=== PATIENT | female | born 1995 | race Caucasian/White ===

== ENCOUNTER 2020-12-20 07:49 | Outpatient (REF) | payer MEDICAID, SELFPAY ==
--- NOTE | ~2020-12-20 | US_ITS ---
EXAMINATION: US DIAGNOSTIC ULTRASOUND BREAST, RIGHT US DIAGNOSTIC ULTRASOUND BREAST, LEFT CLINICAL INFORMATION: 25-year-old with areas of palpable fullness noted at routine clinical exam. No discharge or pain. No family history breast cancer. COMPARISON: Targeted ultrasound left breast 10/27/2017, 01/09/2014, 10/10/2013. TECHNIQUE: Ultrasound is performed using grayscale imaging and color Doppler without and with harmonics. Exam is targeted to the areas of clinical concern 10:00 through 12:00 bilateral breasts. FINDINGS: Right: There is no focal suspicious finding. There is no cystic or solid mass, architectural abnormality, duct ectasia, or edema in the soft tissue planes. Left: There is no focal suspicious finding. There is no cystic or solid mass, architectural abnormality, duct ectasia, or edema in the soft tissue planes. Results are discussed with the patient at time of visit. US/US breast RT limited IMPRESSION: Normal study. ASSESSMENT: BI-RADS 1: Negative RECOMMENDATION: 1. Patient should be managed based on the clinical impression. If clinically indicated, further evaluation may be considered with surgical consult. Decision to proceed with biopsy should be based on clinical grounds and degree of clinical concern. 2. Otherwise, routine annual screening mammography, beginning age 40, or earlier as clinical risk factors warrant. This patient's information was entered into a reminder system with a target due date for their next mammogram.
--- NOTE | ~2020-12-20 | US_ITS ---
EXAMINATION: US DIAGNOSTIC ULTRASOUND BREAST, RIGHT US DIAGNOSTIC ULTRASOUND BREAST, LEFT CLINICAL INFORMATION: 25-year-old with areas of palpable fullness noted at routine clinical exam. No discharge or pain. No family history breast cancer. COMPARISON: Targeted ultrasound left breast 10/27/2017, 01/09/2014, 10/10/2013. TECHNIQUE: Ultrasound is performed using grayscale imaging and color Doppler without and with harmonics. Exam is targeted to the areas of clinical concern 10:00 through 12:00 bilateral breasts. FINDINGS: Right: There is no focal suspicious finding. There is no cystic or solid mass, architectural abnormality, duct ectasia, or edema in the soft tissue planes. Left: There is no focal suspicious finding. There is no cystic or solid mass, architectural abnormality, duct ectasia, or edema in the soft tissue planes. Results are discussed with the patient at time of visit. US/US breast LT limited IMPRESSION: Normal study. ASSESSMENT: BI-RADS 1: Negative RECOMMENDATION: 1. Patient should be managed based on the clinical impression. If clinically indicated, further evaluation may be considered with surgical consult. Decision to proceed with biopsy should be based on clinical grounds and degree of clinical concern. 2. Otherwise, routine annual screening mammography, beginning age 40, or earlier as clinical risk factors warrant. This patient's information was entered into a reminder system with a target due date for their next mammogram.
== END 2020-12-20 07:50 | disposition home or self-care (01) ==
LOC: HO.MAMMO 07:49
PROVIDERS: Visit Provider Advanced Practice Midwife
DX: N63.22 Unspecified lump in the left breast, upper inner quadrant (principal); N63.11 Unspecified lump in the right breast, upper outer quadrant
CPT/HCPCS: 76642

== ENCOUNTER 2021-12-04 09:20 | Outpatient (REF) | payer MEDICAID, SELFPAY ==
--- NOTE | ~2021-12-04 | US_ITS ---
EXAMINATION: US RETROPERITONEAL LIMITED (RENAL ONLY) CLINICAL INFORMATION: History of renal stone. Renal colic. COMPARISON: None TECHNIQUE: Real-time imaging of the kidneys. FINDINGS: RIGHT KIDNEY: 9.4 x 5.0 x 5.7 cm (SAG x AP x TRV). The kidney is normal in size, contour, and echogenicity. Renal cortical thickness is normal. No calculi or focal parenchymal lesions. No hydronephrosis. LEFT KIDNEY: 10.4 x 4.5 x 4.7 cm (SAG x AP x TRV). The kidney is normal in size, contour, and echogenicity. Renal cortical thickness is normal. No calculi or focal parenchymal lesions. No hydronephrosis. US/US renal BI IMPRESSION: Unremarkable sonographic appearance of the bilateral kidneys
== END 2021-12-04 09:21 | disposition home or self-care (01) ==
LOC: HO.US 09:20
PROVIDERS: Visit Provider Nurse Practitioner Family
DX: N23 Unspecified renal colic (principal)
CPT/HCPCS: 76775